=== PATIENT | female | born 1980 | race Caucasian/White ===

== ENCOUNTER 2018-06-30 17:01 | Emergency (ER) | payer SELFPAY ==
[~2018-06-30] VITALS: Ht 162.6 cm; Wt 64.1 kg
[2018-06-30 17:15] VITALS: BP 145/96
[2018-06-30] MEDS ORDERED: REGLAN10 MG PO (17:34)
[2018-06-30] MEDS ORDERED: FIORICET 50-301 EAC1 PO (17:34)
== END 2018-06-30 17:52 | disposition home or self-care (01) ==
LOC: EME 17:01
DX: S09.8XXA Other specified injuries of head, initial encounter (principal); S06.0X0A Concussion without loss of consciousness, initial encounter; W22.09XA Striking against other stationary object, initial encounter; Y93.83 Activity, rough housing and horseplay; F17.200 Nicotine dependence, unspecified, uncomplicated
CPT/HCPCS: 99281; 99284